=== PATIENT | male | born 1965 | race African-American/Black ===

== ENCOUNTER → 2020-07-30 | Outpatient (CLI) | payer OTHER ==
--- NOTE | 2020-07-30 14:50 | 2DMMODE ---
[facility] [place] [address] 2 D/M-MODE ECHOCARDIOGRAM Name: JITENDRA BANDA Room #: REG [facility]#: [id number] Admission: 07/30/20 Attend Phys: Jose Luis Pulido MD Discharge: Date of : 67 Report #: [id number] THIS REPORT FOR: cc: Farrah Silva MD, Karen A. MD Santiago, Patrick MD [facility] ~ APPROVED REPORT Study performed: 07/30/2020 12:58:37 EXAM: Comprehensive 2D, Doppler, and color-flow Echocardiogram Patient Location: Out-Patient Status: routine BSA: 2.31 HR: 89 bpm Rhythm: NSR Other Information Study Quality: Good Indications Hx: HTN, HLP 2D Dimensions RVDd: 28.75 mm IVSd: 11.21 (7-11mm) LVOT Diam: 20.34 (18-24mm) LVDd: 51.47 mm PWd: 10.53 (7-11mm) Ascending Ao: 35.64 (22-36mm) LVDs: 26.40 (25-40mm) Left Atrium: 39.00 (27-40mm) Aortic Root: 33.69 mm Volumes Left Atrial Volume (Systole) Single Plane 4CH: 36.17 mL Single Plane 2CH: 41.51 mL LA ESV Index: 18.00 mL/m2 Aortic Valve AoV Peak Juvencio.: 1.28 m/s AO Peak Gr.: 6.57 mmHg LVOT Max P.29 mmHg LVOT Max V: 1.04 m/s CHUCKIE Vmax: 2.62 cm2 [facility] [address] [place] [address] 2 D/M-MODE ECHOCARDIOGRAM Name: SOLO,JITENDRA W Room #: REG [facility]#: [id number] Admission: 07/30/20 Attend Phys: Jose Luis Pulido MD Discharge: Date of : 67 Report #: [id number] Mitral Valve E/A Ratio: 0.6 MV Decel. Time: 35.55 ms MV E Max Juvencio.: 0.59 m/s MV A Juvencio.: 0.98 m/s MV PHT: 10.31 ms IVRT: 103.81 ms Pulmonary Valve PV Peak Juvencio.: 0.98 m/s PV Peak Gr.: 3.86 mmHg Pulmonary Vein P Vein S: 0.77 m/s P Vein A: 0.30 m/s P Vein D: 0.39 m/s P Vein A Dur.: 93.4 msec P Vein S/D Ratio: 1.97 Tricuspid Valve RAP Estimate: 5.00 mmHg Left Ventricle The left ventricle is normal size. There is normal LV segmental wall motion. There is normal left ventricular wall thickness. The left ventricular systolic function is normal. LVEF is 60-65%. Grade I - abnormal relaxation pattern. Right Ventricle The right ventricle is normal size. The right ventricular systolic function is normal. Atria The left atrium size is normal. The right atrium size is normal. Aortic Valve The aortic valve is normal in structure. No aortic regurgitation is present. There is no aortic valvular stenosis. Mitral Valve The mitral valve is normal in structure. There is no mitral valve regurgitation noted. No evidence of mitral valve stenosis. Tricuspid Valve The tricuspid valve is normal in structure. There is no tricuspid valve regurgitation noted. Unable to assess PA pressure. [facility] [place] [address] 2 D/M-MODE ECHOCARDIOGRAM Name: JITENDRA BANDA Room #: REG [facility]#: [id number] Admission: 07/30/20 Attend Phys: Jose Luis Pulido MD Discharge: Date of : 67 Report #: [id number] Pulmonic Valve The pulmonary valve is normal in structure. Trace pulmonic regurgitation. Great Vessels The aortic root is normal in size. The ascending aorta is normal in size. IVC is normal in size and collapses >50% with inspiration. Pericardium There is no pericardial effusion. There is no pleural effusion. <Conclusion> Normal left ventricular size/wall thickness Ejection fraction 60% Grade 1 diastolic dysfunction Normal right ventricular size/function Normal atrial size Color-flow Doppler study was performed of the aortic/mitral/tricuspid/pulmonary valve Normal aortic/mitral valve structure and function No tricuspid valve insufficiency Normal aortic root size No pericardial effusion. <ELECTRONICALLY SIGNED> By: Patrick Mckee MD, FACC 07/30/201449 [id number] Patrick Mckee MD, FACC /INF
== END ==
LOC: CV 13:40
PROVIDERS: ATTEND Orthopaedic Surgery
DX: I11.0 Hypertensive heart disease with heart failure (principal); I25.9 Chronic ischemic heart disease, unspecified; E78.5 Hyperlipidemia, unspecified